=== PATIENT | female | born 1995 | race Caucasian/White ===

== ENCOUNTER 2021-04-05 06:01 | Inpatient (IN) | payer BC, SELFPAY ==
[2021-04-05] VITALS (82 sets, daily range): BP systolic 84–135; BP diastolic 61–86; PULSE 48–100; RESP 10–32; TEMP 36.2–37; O2SAT 88–100; BMI 42.9
[2021-04-05] MEDS: lactated ringers 1,000 ML 999 ML IV (06:01)
[2021-04-05] MEDS: ampicillin 2,000 MG in sodium chloride 0.9% (plus) 50 ML 100 MG IV (06:13)
[2021-04-05] MEDS: citric acid-sodium citrate 30 mL UDC PO (06:41)
[2021-04-05] MEDS: famotidine 20 mg/2 mL INJ IVP (06:45)
[2021-04-05] MEDS: metoclopramide 5 mg/mL SDV 2 mL 10 MG IVP (06:45)
--- NOTE | 2021-04-05 06:50 | P.ANESASSM_ITS ---
Pre-Anesthetic Assessment Pre-Anesthetic Assessment: Preop Diagnosis: IUP Proposed Procedure: C- Section Familial anesthetic complications: None Last intake: NPO > 8 hrs Exam: Pre-Anes Outpt Exam: alert, oriented x 3 and regular rate & rhythm Airway: Cervical ROM: WNL MP: 4 Dentition: Chipped and Other (missing) Pulmonary: Pulmonary: Asthma CV/HEM: Comments: platelets 50k per patient while at [facility] Metabolic: Metabolic: Morbid obesity Anesthetic Plan: ASA status: 3E Anesthesia: General Other: RSI Risk of > 500 ml blood loss (7ml/kg in children): Yes, adequate IV access and fluids planned Data Anesthesia CBC & Chem 7: 04/05/21 06:05 Cardiac Studies: No Data to Display
[2021-04-05 07:26] LABS: Basophils % 0.3 %; Eosinophils % 0.1 %; Hematocrit 31.6 % (37.0-47.0); Lymphocytes # 2.2 10^3/uL (0.8-4.8); Lymphocytes % 30.9 %; Mean Corpuscular HGB Conc 31.6 g/dL (30.0-36.0); Mean Corpuscular Hemoglobin 25.8 pg (28.0-34.0); Mean Corpuscular Volume 81.4 fL (81-99); Monocytes # 0.4 10^3/uL (0.2-0.9); Monocytes % 6.3 %; Neutrophils # 4.25 10^3/uL (1.8-7.7); Nucleated Red Blood Cells % 0.3 %; Platelet Count 37 10^3/cmm (130-400); Red Blood Count 3.88 10^6/uL (4.1-5.3); Red Cell Distribution Width 14.4 % (12.1-15.1)
[2021-04-05 07:32] LABS: Slide Review Slide Review Perform
--- NOTE | 2021-04-05 08:34 | PM.OBGYHP ---
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 The patient received her care with Dr. Meyers in [place]. They have been seen in [place] 2 days prior. At that time she refused a Covid swab and left AMA according to the hospital. The patient's has otherwise been within normal limits. She did state that at [place] they found that her platelet counts were 50,000. On arrival to hospital, she was found to have a moderate amount of vaginal bleeding. Once we had the patient on the monitor, she was found to have an infant with minimal variability and late decelerations. After we had enough of a strip to make it clear that it was a consistent pattern, a stat was initiated. Her Covid status was unknown, and she had spiked a fever at [place] so elected to have her in a negative pressure room of the OR. She has once again refused to have a Covid test. Per the patient she has no significant medical history. She has had no previous problems with bleeding. She does states that she has had lower platelets with previous pregnancies as well. She is unaware of anyone in her family having issues with bleeding. 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 Meyers. We are in the process of receiving the documents from [facility]. Physical Exam Const: COMMON NORMALS: patient oriented x3 and alert HENMT: COMMON NORMALS: moist oral mucous membranes HEAD & SCALP: normal to inspection Chest: COMMONS NORMALS: normal inspection of the chest Resp: COMMON NORMALS: clear to auscultation bilaterally AUSCULTATION: clear to auscultation bilaterally Cardio: COMMON NORMALS: regular rate and regular rhythm RATE: regular rate RHYTHM: regular rhythm GI: INSPECTION: Yes normal to inspection and Yes other (Gravid) : EXTERNAL FEMALE EXAM: Yes other (Moderate vaginal bleeding noted) Extremity: COMMON NORMALS: normal to inspection GENERAL: Yes edema (Trace) Neuro: COMMON NORMALS: patient oriented x3, moves all extremities and no sensory deficits noted SENSORIUM/ORIENTATION: Yes alert Psych: COMMON NORMALS: mental status grossly normal Skin: COMMON NORMALS: no rashes or lesions noted GENERAL SKIN EXAM: no rashes or lesions noted Data : 04/06/21 05:00 04/06/21 05:00 A&P Assessment and plan (1) 36 weeks gestation of : Status: Acute (2) Thrombocytopenia: Post surgery, she had a larger than normal amount of vaginal bleeding when the uterus was evacuated. She was placed on Hemabate. The patient was given extra Pitocin. We will start tranexamic acid. I have consulted Dr. Beltrán. We will get a CBC and a DIC panel stat. We will transfer her to ICU for further evaluation. We will carefully monitor her condition. As long as she maintains normal bleeding, and has no neurologic changes we will consider keeping her here at our hospital. If we have any concerns about her stability or if we are concerned she is shifting into TTP she will be transferred. Status: Acute (3) COVID-19 virus test result unknown: Covid test the patient if she will agree to it. Status: Acute (4) Vaginal bleeding during : Status: Acute (5) Non-reassuring heart rate with late deceleration: Status: Acute Attestations Medical Necessity Statement*: The patient will be in the hospital for 3 to 5 days while we evaluate her thrombocytopenia and ensure that she is hemodynamically stable post surgery Coding Level of Care Code Acute [employer] Director for g Fwd Exam Comprehensive Diagnoses 36 weeks gestation of Z3A.36 Thrombocytopenia D69.6 COVID-19 virus test result unknown Z20.822 Vaginal bleeding during O46.90 Non-reassuring heart rate with late deceleration O36.8390
--- NOTE | 2021-04-05 08:37 | P.PCN_ITS ---
PACU note PACU note: VSS, Good respiratory effort, report to BAT LATHE OPERATOR Post-Anesthesia Exam: awake
--- NOTE | 2021-04-05 08:37 | PM.PACU ---
PACU note PACU note: VSS, Good respiratory effort, report to FIRST BREAKER FEEDER Post-Anesthesia Exam: awake
--- NOTE | 2021-04-05 09:00 | PC.NURSE ---
Received pt Rec'd pt from OR with OB nurses at bedside. Pt was able to move from OR bed to ICU bed on her own with little assist. She has a ceserean incision to her lower abdomen covered with foam tape. Her mederos is in place and draining. The chucks under her do have blood on them. The total EBL combined on chucks is about 35ml. Pt is alert and oriented. Her fundus is firm after massage by OB nurse. Pt has 2 18 guage IVs to each arm. SCDs are in place. Pt is on room air. Her phone and glasses are on her bedside table.
[2021-04-05 09:32] LABS: Hematocrit 30.5 % (37.0-47.0); Hemoglobin 9.6 g/dL (11.5-15.3); Mean Corpuscular HGB Conc 31.5 g/dL (30.0-36.0); Mean Corpuscular Hemoglobin 26.2 pg (28.0-34.0); Mean Corpuscular Volume 83.3 fL (81-99); Platelet Count 43 10^3/cmm (130-400); Red Blood Count 3.66 10^6/uL (4.1-5.3); Red Cell Distribution Width 14.3 % (12.1-15.1); White Blood Count 7.1 10^3/uL (4.0-10.0)
[2021-04-05] MEDS: docusate sodium 100 mg Capsule PO ×2 (10:11→17:03)
[2021-04-05] MEDS: dextrose 5%-lactated ringers 1,000 ML 125 ML IV ×2 (10:11→17:06)
[2021-04-05 10:12] LABS: Partial Thromboplastin Time 38.7 SECONDS (23.9-36.7)
[2021-04-05 10:21] LABS: Absolute Neutrophil 5.6 10^3/cmm (1.4-6.5); Absolute Segmented Neutrophil 4.3 10/cmm (1.6-7.1); Band Neutrophils Absolute 1.3 10^3/cmm (0.0-1.2); Eosinophils 0 %; Lymphocytes 18 %; Lymphocytes Absolute 1.3 10^3/cmm (1.2-3.4); Monocytes Absolute 0.2 10^3/cmm (0.1-0.6); Platelet Estimate Decreased (Normal); Segmented Neutrophils 61 %; Total Cells Counted 100 (0-100)
[2021-04-05 10:22] LABS: Fibrinogen 111 mg/dL (174-498)
[2021-04-05 10:29] LABS: D Dimer >= 20.00 ug/mIFEU (0-0.59)
[2021-04-05] MEDS: HYDROcodone-acetaminophen 5-325 mg Tablet PO ×4 (10:31→22:10)
[2021-04-05 11:10] LABS: Lactate Dehydrogenase 877 U/L (135-214)
[2021-04-05 11:45] LABS: Anion Gap 12.6 (5-19); Blood Urea Nitrogen 10 mg/dL (6-20); Calcium 7.3 mg/dL (8.5-10.5); Carbon Dioxide 23 mmol/L (22-29); Chloride 107 mmol/L (98-107); Glomerular Filtration Rate 197.8 mL/min (90-130); Glucose 93 mg/dL (65-115); Osmolality Calculated 287 mOsm/kg (285-295); Potassium 3.6 mmol/L (3.5-5.1); Sodium 139 mmol/L (136-145)
[2021-04-05 14:42] LABS: Basophils % 0.1 %; Hematocrit 24.3 % (37.0-47.0); Hemoglobin 7.6 g/dL (11.5-15.3); Lymphocytes # 1.7 10^3/uL (0.8-4.8); Lymphocytes % 21.8 %; Mean Corpuscular HGB Conc 31.3 g/dL (30.0-36.0); Mean Corpuscular Volume 83.2 fL (81-99); Monocytes # 0.4 10^3/uL (0.2-0.9); Monocytes % 4.6 %; Neutrophils # 5.69 10^3/uL (1.8-7.7); Neutrophils % 72.5 %; Nucleated Red Blood Cells % 0 %; Platelet Count 30 10^3/cmm (130-400); Red Blood Count 2.92 10^6/uL (4.1-5.3); Red Cell Distribution Width 14.4 % (12.1-15.1); White Blood Count 7.9 10^3/uL (4.0-10.0)
[2021-04-05 14:54] LABS: Lactate Dehydrogenase 577 U/L (135-214)
[2021-04-05 15:14] LABS: Slide Review Slide Review Perform
[2021-04-05] MEDS: ferrous sulfate EC 325 mg Tablet PO (17:03)
--- NOTE | 2021-04-05 17:17 | P.CONIM_ITS ---
Providers/Reason For Consult Consulting Physician/Specialty*: Hematology Reason for Consult*: Thrombocytopenia Attending Physician: David Ho MD History of Present Illness History of Present Illness Neris Sanders is a 25 year old woman who was admitted for emergency due to distress. She is 6, para 6 with her 5 previous pregnancies having been delivered vaginally without complications. On her admission note it was reported that she has had low platelet count with prior pregnancies. She was having vaginal bleeding on arrival to the emergency room this morning she was noted to have moderately severe thrombocytopenia with platelet count 37,000. Hemoglobin was mildly decreased at 10.0 g with white blood cell count normal at 7000. Her repeat CBC postoperatively showed hemoglobin down slightly at 9.6 g with white blood cell count 7100 and platelet count 43,000. Her DIC profile showed PT slightly prolonged at 14.50 seconds with PTT 38.7 seconds, fibrinogen low at 111 mg/dL, fibrin degradation products elevated greater than 40 and D- dimer elevated at greater than 20.00. At that point I had requested additional studies to be added which apparently were done on the initial lab draw. Those included haptoglobin level which was low at 28.0 mg/dL and LDH which was significantly elevated at 877 U/L. I reviewed the blood smear from both of those studies and there were just very occasional schistocytes present. There were some large platelet forms present and there was some platelet clumping. She has now been admitted to ICU. Her repeat CBC from 1420 show significant decline in the hemoglobin to 7.6 g with white blood cell count 7900 and platelet count 30,000. The LDH level has come down to 577 U/L. Her chemistry profile earlier today showed normal renal function with BUN 10 and creatinine 0.4 mg/dL. She does feel somewhat weak generally, and she is having some chills. She reports having had a fever of 102 degrees on Monday, but none since then. One of her children had recently tested positive for Covid, but she just came out of quarantine today. Patient is having significant abdominal pain. She does not have headache, visual changes, or any focal neurologic symptoms. Review of Systems Const: Reports: fever(s) and fatigue; Denies: night sweats or other (no hot flashes) Eyes: Denies: change in vision ENMT: Denies: throat pain, odynophagia, hoarseness, oral sores, change in hearing or tinnitus Card: Denies: chest pain, palpitations, swelling of feet/ankles or lightheadedness Resp: Denies: dyspnea, productive cough, wheezing, pain on inspiration or hemoptysis GI: Reports: abdominal pain; Denies: nausea, vomiting, dysphagia, heartburn, diarrhea, constipation, hematochezia or melena : Denies: dysuria, urinary frequency, urinary urgency, urinary hesitancy, urinary incontinence or hematuria Musc: Denies: neck pain, back pain, joint pain or joint stiffness Neuro: Denies: headache(s), numbness in extremities, sensory changes or dizziness Psych: Denies: anxiety or depression Hector/Lymph: Denies: easy bruising Meds/Allergies Home Medications and Allergies Allergies Allergy/AdvReac Type Severity Reaction Status Date / Time No Known Allergies Allergy Verified 04/05/21 10:24 Current Medications Current Medications Generic Name Dose Route Start Last Admin Trade Name Freq PRN Reason Stop Dose Admin Hydrocodone Bitart/Acetaminophen 1 - 2 tab 04/05/21 09:42 04/05/21 13:56 Hydrocodone-Acetaminophen 5-325 Mg Tablet PO 2 tab Q4H PRN Administration MODERATE TO SEVERE PAIN Docusate Sodium 100 mg 04/05/21 09:42 04/05/21 17:03 Docusate Sodium 100 Mg Capsule PO 100 mg BID PALAK Administration Ferrous Sulfate 325 mg 04/05/21 18:00 04/05/21 17:03 Ferrous Sulfate Ec 325 Mg Tablet PO 325 mg BIDWM PALAK Administration Dextrose/Lactated Ringer's 1,000 mls @ 125 mls/hr 04/05/21 09:42 04/05/21 17:06 Dextrose 5%-Lactated Ringers IV 125 mls/hr .Q8H PALAK Administration PFSH Acute PFSH: Surgical History (Updated 04/05/21 @ 18:13 by Aguilar Beltrán MD) History of tonsillectomy and adenoidectomy Social History (Updated 04/05/21 @ 17:57 by Aguilar Beltrán MD) Smoking and tobacco status: former smoker Alcohol intake: never Marital status: Female Reproductive History: : 6 Vitals/I&O/Wt Last Vital Signs Temp 98.1 F 04/05/21 16:00 Pulse 80 04/05/21 16:00 Resp 14 04/05/21 16:00 BP 111/65 04/05/21 16:00 Pulse Ox 99 04/05/21 16:00 04/05/21 04/05/21 04/05/21 06:59 14:59 22:59 Intake Total 1999 864.583 / 2864.583 Output Total 1450 / 1450 Balance 550 / 550 864.583 / 1414.583 Weight last 48 hrs Weight 113.398 kg Physical Exam Const: OTHER: She is in some discomfort and she does have some chills. HENMT: MOUTH: Normal oral and palatal mucosa present THROAT: posterior oropharynx normal Eye: COMMON NORMALS: conjunctivae normal and no scleral icterus CONJUNCTIVA: Yes conjunctivae normal Lymph: LYMPHATIC: no lymphadenopathy noted (No cervical, clavicular, axillary, or inguinal lymphadenopathy) Resp: COMMON NORMALS: clear to auscultation bilaterally AUSCULTATION: clear to auscultation bilaterally Cardio: COMMON NORMALS: regular rate, regular rhythm, No gallops present (Cardio), No murmurs present (Cardio) and No rub (Cardio) RATE: regular rate RHYTHM: regular rhythm GI: COMMON NORMALS: negative for non-tender, negative for No hepatosplenomegaly present and negative for no masses PALPATION: No No hepatosplenomegaly present OTHER: Abdomen is mildly distended. She is significantly tender, particularly in the right upper quadrant area. Bowel sounds are present. : COMMON NORMALS: Yes no CVA tenderness BLADDER/KIDNEY EXAM: Yes no CVA tenderness Back/Pelvis: COMMON NORMALS: no CVA tenderness and no thoracic nor lumbar tenderness Extremity: NARRATIVE EXTREMITY EXAM: No edema. Pedal pulses are palpable bilaterally. Neuro: COMMON NORMALS: no focal motor deficits and no sensory deficits noted Skin: NARRATIVE SKIN EXAM: No evidence of skin eruption. No suspicious skin lesions noted. Urinary Catheter Management^: Dejesus Latex: Cath Placed During This Visit: yes Urinary Catheter Date of Insertion: 04/05/21 Urinary Catheter Time of Insertion: 06:30 A&P Assessment and plan (1) Thrombocytopenia: Status: Acute (2) Anemia due to blood loss, acute: Status: Acute Additional A&P Information This patient presents with moderately severe thrombocytopenia and anemia in association with . She has been delivered by section due to distress. Postoperatively she has had a drop in her hemoglobin from 10 to 7.6 g. At this point this is presumed to be due to blood loss. The clinical picture is complicated as she does have some evidence for DIC but her elevated LDH and low haptoglobin suggest that there is a component of microangiopathic hemolysis, presumably TTP. She had an isolated fever 2 days ago, she has had no neurologic or renal manifestations of TTP. As she currently has no active bleeding and her LDH level decreasing, I think it is acceptable to monitor her closely. If her hematologic parameters fail to improve or if there is any deterioration in her clinical status, she should be transferred to a facility where plasma exchange is available. 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
[2021-04-05 18:39] LABS: Amphetamines Screen Urine Negative (Negative); Barbiturates Screen Urine Negative (Negative); Benzodiazepines Screen Urine Negative (Negative); Cocaine Screen Urine Negative (Negative); Opiate Screen Urine Positive (Negative); PCP Screen Urine Negative (Negative); THC Screen Urine Negative (Negative)
--- NOTE | 2021-04-05 19:30 | PM.OP ---
Operative Report Date of procedure: April 05, 2021 Pre-op Diagnosis: 36-week EGA with vaginal bleeding and nonreassuring heart tones Post-op diagnosis: other (Uterine abruption.) Procedure Done: Lower transverse section Specimens removed/disposition: 1. Female with Apgars of 1, 3, 5 and weight of 2.66 kg 2. Placenta with a three-vessel cord delivered intact Surgeon: David Ho Anesthesia: General Estimated blood loss (mL): 600 Complications: None Condition: critical (Due to thrombocytopenia) Disposition: ICU Brief History: Refer to history and physical Procedure: The patient was brought back to the operating room stat where she was prepped and draped in usual sterile fashion. The patient was then placed under general anesthesia.. A lower transverse skin incision was then made with a #10 blade. I then dissected down to the underlying subcutaneous tissue until arriving at the prerectal fascia. The fascia was then nicked with the scalpel bilaterally. The fascial incisions were then carried laterally with Knott scissors. Attention was then turned to the superior aspect of the incision which was grasped with kochers and tented up away from the underlying rectus abdominis muscles. The muscles were then dissected away from the fascia manually, and later with Knott scissors. Attention was then turned to the inferior aspect of the incision, and the fascia was dissected away from the underlying muscle in similar fashion. The rectus abdominis muscles were then spread manually. The peritoneum was entered manually. Excellent visualization of the uterus was noted. A lower transverse uterine incision was then made with a #10 blade. Upon arriving at the intrauterine cavity, the uterine incision was then extended manually. Dark blood was noted in the intrauterine cavity indicating a probable placental abruption. The amniotic sac was then ruptured, and thick meconium was noted. The was noted to be in vertex position. The baby was delivered without difficulty. There was no nuchal cord. The cord was immediately cut and clamped. The baby was then handed to Dr. Mc. The placenta was removed intact. The uterus was externalized. The intrauterine cavity was cleansed of any remaining debris. The uterine incision was reapproximated in 2 layers. The first layer was performed with 0 Vicryl in a running locked stitch. The second layer was an imbricating stitch also using 0 Vicryl. I then used 3 [id number] stitches to maintain excellent hemostasis. The uterus was replaced into the abdomen. The peritoneum was then irrigated with warm saline. I reexamined the uterine incision and found it to be hemostatic. The rectus abdominis muscles were then reapproximated using 0 Vicryl in a running stitch. The fascia was then reapproximated using 0 Vicryl in running stitch. The subcutaneous tissue was then reapproximated using 0 Vicryl in a running stitch. The skin was reapproximated using Insorb tiff. Steri-Strips were placed. A sterile dressing was placed. All counts were correct x2. The uterus was then evacuated, and she had moderate to large amount of blood and clots noted. As result I chose to have more Pitocin placed in the bag. She was given a dose of Hemabate. She was given a dose of tranexamic acid. The mother was briefly placed in the PACU before being transferred to the ICU due to her thrombocytopenia Associated Problem List Diagnoses (1) Vaginal bleeding during : (2) Thrombocytopenia: (3) 36 weeks gestation of : (4) Non-reassuring heart rate with late deceleration:
[2021-04-05] MEDS: miSOPROStol 200 mcg Tablet 600 MCG PO (19:45)
[2021-04-05] MEDS: hyDROXYzine 25 mg Capsule 50 MG PO (20:42)
[2021-04-05 20:57] LABS: Basophils % 0.1 %; Hematocrit 23.4 % (37.0-47.0); Hemoglobin 7.2 g/dL (11.5-15.3); Lymphocytes % 27.9 %; Mean Corpuscular HGB Conc 30.8 g/dL (30.0-36.0); Mean Corpuscular Hemoglobin 25.8 pg (28.0-34.0); Mean Corpuscular Volume 83.9 fL (81-99); Monocytes # 0.4 10^3/uL (0.2-0.9); Monocytes % 5.4 %; Neutrophils # 4.75 10^3/uL (1.8-7.7); Neutrophils % 65.6 %; Nucleated Red Blood Cells % 0.3 %; Platelet Count 37 10^3/cmm (130-400); Red Blood Count 2.79 10^6/uL (4.1-5.3); Red Cell Distribution Width 14.5 % (12.1-15.1); White Blood Count 7.2 10^3/uL (4.0-10.0)
[2021-04-05 21:25] LABS: Slide Review Slide Review Perform
[2021-04-06] VITALS (28 sets, daily range): BP systolic 95–124; BP diastolic 49–86; PULSE 76–114; RESP 14–21; TEMP 36.8–37.4; O2SAT 91–100
--- NOTE | 2021-04-06 01:48 | PC.NURSE ---
This nurse entered room, patient was attempting to sit on the side of the bed. this RN explained the importance of strict bedrest and minimal strain due to complicated surgery. Patient stated she didn't know what she was doing. Patient was able to lay back in the bed. This RN cleaned the patient and repositioned the patient in bed. Patient stated she was comfortable and asked for pain medication. explained that it was not quite time but would bring it when due. Patient does not seem to be bleeding more than normal, and all vitals appear stable at this time. will continue to monitor
[2021-04-06] MEDS: dextrose 5%-lactated ringers 1,000 ML 125 ML IV ×2 (01:57→09:15)
[2021-04-06] MEDS: HYDROcodone-acetaminophen 5-325 mg Tablet PO ×2 (03:20→08:13)
[2021-04-06 05:44] LABS: Basophils % 0.2 %; Lymphocytes # 1.6 10^3/uL (0.8-4.8); Lymphocytes % 30.2 %; Mean Corpuscular HGB Conc 31.2 g/dL (30.0-36.0); Mean Corpuscular Hemoglobin 26.1 pg (28.0-34.0); Mean Corpuscular Volume 83.6 fL (81-99); Monocytes # 0.3 10^3/uL (0.2-0.9); Monocytes % 4.9 %; Neutrophils # 3.32 10^3/uL (1.8-7.7); Nucleated Red Blood Cells % 0 %; Red Blood Count 2.26 10^6/uL (4.1-5.3); Red Cell Distribution Width 14.6 % (12.1-15.1); White Blood Count 5.3 10^3/uL (4.0-10.0)
[2021-04-06 05:51] LABS: INR 1.11 (0.8-1.2); Partial Thromboplastin Time 34.4 SECONDS (23.9-36.7)
[2021-04-06 05:52] LABS: Fibrinogen 249 mg/dL (174-498)
[2021-04-06 06:01] LABS: D Dimer 3.96 ug/mIFEU (0-0.59)
[2021-04-06 06:15] LABS: Slide Review Slide Review Perform
[2021-04-06 06:16] LABS: Hematocrit 18.9 % (37.0-47.0); Hemoglobin 5.9 g/dL (11.5-15.3); Platelet Count 34 10^3/cmm (130-400)
[2021-04-06 07:54] LABS: Anion Gap 11.2 (5-19); Blood Urea Nitrogen 5 mg/dL (6-20); Carbon Dioxide 23 mmol/L (22-29); Chloride 107 mmol/L (98-107); Glomerular Filtration Rate 275.7 mL/min (90-130); Glucose 112 mg/dL (65-115); Lactate Dehydrogenase 481 U/L (135-214); Osmolality Calculated 284 mOsm/kg (285-295); Potassium 3.2 mmol/L (3.5-5.1); Sodium 138 mmol/L (136-145)
--- NOTE | 2021-04-06 07:57 | PM.OBGYPN ---
MEDICAL OFFICE SECRETARY Subjective Subjective: Interval history: The patient has done fairly well overnight. She does not like her blood pressure cuff on and often takes it off because she says it hurts too much. She has pulled off her SCDs as well and refuses to wear them. She has not passed gas. Her bleeding has diminished substantially. Neurologically the patient has no complaints. Labor: Amniotic Membrane Status: Intact Vitals/I&O/Wt Last Vital Signs Temp 98.6 F 04/06/21 04:00 Pulse 79 04/06/21 07:00 Resp 17 04/06/21 07:00 BP 111/66 04/06/21 06:00 Pulse Ox 95 04/06/21 07:00 04/05/21 04/06/21 04/06/21 22:59 06:59 14:59 Intake Total 1314.583 / 3314.583 1000 / 4314.583 Output Total 400 / 1850 450 / 2300 Balance 914.583 / 1464.583 550 / 2014.583 Weight last 48 hrs Weight 250 lb Physical Exam Narrative: EXAM NARRATIVE: She is in no acute distress Lungs are clear auscultation bilaterally Her heart has a regular rate and rhythm Her fundus is below the umbilicus and firm. She is very tender on examination of her uterus. Her dressing is clean, dry and intact Her extremities have trace edema Urinary Catheter Management^: Dejesus Latex: Cath Placed During This Visit: yes Reason for Continuing Indwelling Catheter: Accurate Measurement of Urinary Output in Critically Ill Patients Urinary Catheter Date of Insertion: 04/05/21 Urinary Catheter Time of Insertion: 06:30 Data : 04/06/21 05:00 04/06/21 05:00 A&P Assessment and plan (1) Thrombocytopenia: Status: Acute (2) Status post : Status: Acute (3) Postoperative anemia due to acute blood loss: The patient appears to be doing reasonably well. Her hemoglobin has dropped to 5.9, and we will transfuse 2 units. She does not communicate often, and sometimes it is hard to understand what she wants. We have explained the importance of keeping the blood pressure cuff and SCDs on, and she is just not willing to keep on the SCDs, and will intermittently allow us to put on the blood pressure cuff. In general, her DIC labs have improved. Dr. Beltrán has been very helpful in evaluating her risk for TTP, and for general guidance regarding her hematology. If the remainder of her labs come back improved this morning, we will consider transferring her from the ICU. Status: Acute (4) Hypokalemia: This is likely transient. It is not in a critical range yet, and we will recheck it again in the morning. Status: Acute Attestations Medical Necessity Statement*: I anticipate the patient will be in the hospital for several more days as result of her thrombocytopenia and her postoperative anemia. 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
[2021-04-06] MEDS: docusate sodium 100 mg Capsule PO (08:12)
[2021-04-06] MEDS: ferrous sulfate EC 325 mg Tablet PO (08:12)
[2021-04-06] MEDS: morphine 4 mg/mL SDV 1 mL IVP ×2 (08:13→09:15)
[2021-04-06] MEDS: naloxone 0.4 mg/ml SDV IVP (08:50)
[2021-04-06] MEDS: ondansetron 2 mg/ML SDV 2 mL 4 MG IVP (08:50)
--- NOTE | 2021-04-06 09:42 | PC.CHAP ---
Pastoral Care Encounter/Spiritual Assessment Type of Contact [] Declined auto bumper straightener visit [] Patient/Family/Request visit [] Outpatient visit [] Follow-up visit [] Physician referral [] Code/Alert [x] Routine visit [] Staff referral [] Actively dying [] Patient sleeping [] Family support [] [] Out of room [] Palliative care [] [] Receiving care in room [] Pre-surgical visit [] Trauma [] Long length of stay [x] ICU visit [] Other: Relational/Emotional Strength [] Patient feels connected with others/family/visitors/staff [] Distress [] Loneliness/isolation [] Abandonment Spirituality of Patient [] Person of [place] [] Attends Pentecostal of their [place] [] Believes in Prayer [] Reads Bible or Islam materials [] There are Spiritual issues to be addressed Paper Processing Machine Helper Interventions [x] Prayer [] Active listening [] Non-anxious presence [] Spiritual/emotional support [] Crisis/trauma care [] Spiritual counseling [] Bereavement support [] Provided bereavement packet [] Provided Bible/devotional materials [] Provided toy/stuffed animal, coloring book to patient or family member [] Provided Communion [] Anointing/[place] [] Salvation [x] Completed spiritual assessment [] Other: Impact on Illness or Injury [] Angry [] Fearful [] Anxious [] Often cries [] Exhaustion [] Unable to work [] Unable to attend mormon [] Unable to walk/stand [] Unable to read [] Unable to drive [] Unable to eat/drink [] Unable to sleep [] Unable to be with family [] Patient intubated [] Other: Summary Time spent with patient
[2021-04-06] MEDS: diphenhydrAMINE 25 mg Capsule PO (10:18)
[2021-04-06] MEDS: sodium chloride 0.9% 250 ML 10 ML IV ×2 (10:18→16:22)
--- NOTE | 2021-04-06 10:51 | PC.NURSE ---
Phys notified 0840 Pt was given pain meds per mar and PRN orders. While pt was alert but tired. During admin of morphine she began to not being able to answer basic questions as in where she was at. Pt's vital signs were stable. Dr Ho was notified immediately. 0845 Dr Ho present at bedside. Dr began going over nuero assessment and then ordered a dose of Narcan. This nurse pulled and admin the narcan. PT immediately began having pain but was released somewhat from the brain fog . reassessed pt for any substantial confusion. It was agreed that pt is incredibly exhausted and the pain meds caused the temporary confusion. Pt's vital signs remain stable with no changes. Will continue to monitor.
--- NOTE | 2021-04-06 13:58 | PC.NURSE ---
Transfer to OB Pt ordered to be transferred to OB. Report called to Dayanara MATTHEWS. Pt transferred to OB by bed with the help of RACHEL Quan. Pt was able to move from ICU bed onto the OB bed. Verbal report given to Dayanara MATTHEWS at bedside. Pt's first unit of blood finished transfusing when pt arrived to OB room. Blood switched over to saline. Pt is notifying family of transfer to OB. Pt in good condition.
--- NOTE | 2021-04-06 15:05 | PC.NURSE ---
Offered patient SCDs to prevent blood clots in her legs. Patient refused.
[2021-04-06 15:24] LABS: Coronavirus Test Green County Detected
--- NOTE | 2021-04-06 16:50 | PC.NURSE ---
Patient refused abdominal dressing to be removed.
--- NOTE | 2021-04-06 16:50 | PC.NURSE ---
Patient assisted to the bathroom. Patient tolerated ambulating well, denying any dizziness or weakness at this time. Patient reported ambulating as just being painful.
--- NOTE | 2021-04-07 06:57 | PM.OBGYDC ---
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 Date of Admission: 04/05/21 06:01 Date of Discharge: 04/07/21 Attending Provider at Admission: David Ho MD Attending Provider at Discharge: David Ho MD Diagnoses at Discharge Discharge Diagnosis (1) Thrombocytopenia: Status: Acute (2) Status post : Status: Acute (3) Postoperative anemia due to acute blood loss: Status: Acute (4) Non-reassuring heart rate with late deceleration: Status: Acute (5) 36 weeks gestation of : Status: Acute Reason for Visit Reason for Visit: VAGINAL BLEEDING/36 WEEKS Hospital Course Hospital Course The patient is a 36-week multigravida female who presented to the hospital via EMS. Apparently she had been seen in [facility] a few days prior, but left AMA to avoid getting a Covid swab. Dr. Meyers, her OB doctor, explained that she had strongly encouraged her to stay and was very concerned about potential future complications as result of her thrombocytopenia. A few hours prior to admission, she began having vaginal bleeding. She then contacted EMS and was brought to the OB floor via ambulance. Upon arrival, we were able to obtain heart tones and noted that she had persistent late decelerations with minimal variability. As result, a stat was ordered. The was unremarkable. The baby on the other hand did not respond well to resuscitation, was intubated, and was shipped to [place]. Due to the mother's thrombocytopenia, she was placed in the ICU postoperatively. Dr. Beltrán, hematology, was consulted. A full panel of labs were done to evaluate for TTP, and to assess her cardiovascular status. While some labs were out of range, in some cases as expected in a state, they gradually improved over 24 hours. However her hemoglobin did drop to 5.9 and I elected to transfuse her 2 units of blood. She tolerated the transfusion well. Towards the end of the transfusion of the second unit of blood, the patient became aware that her daughter's condition had deteriorated and she is being transferred to [place]. She stated she wanted to be discharged to be with her daughter. We strongly encouraged her not to. A couple of different nurses talk to her about the importance of staying for her own health and the potential risk of dying if she began to bleed heavily. I also spoke with her via the phone prior to her leaving AGAINST MEDICAL ADVICE. I tried to help her understand the value of staying in the hospital, and explicitly explained the risks of leaving including the risk of dying. After speaking with her for a minute it became clear that she was not going to change her mind. I did my best to talk to her about potential signs and symptoms that would indicate she would need to get care immediately. She left shortly thereafter. During her hospital stay, her vaginal bleeding was within normal limits. It decreased substantially the day after surgery. Her urine output was appropriate. She did have some mild tachycardia but otherwise had vitals that were within normal limits she did not pass any flatus but was hungry. She had very low tolerance for anything that made her uncomfortable. She refused SCDs. She pulled off her blood pressure cuff frequently. And, she struggled to keep from pulling the nurse's hands off her belly when they did fundal rubs. She was presumed to be Covid positive during her hospital stay and was kept in isolation. She finally had a swab performed which did demonstrate she was positive for COVID-19.. Information Peripartum Data: Infant Delivery Method: Physical Exam Narrative: EXAM NARRATIVE: I did not personally examined the patient just prior to discharge. The nurse did remove her dressing and stated that the incision looked good. She appeared to be hemodynamically stable. Urinary Catheter Management^: Dejesus Latex: Cath Placed During This Visit: yes, but has since been removed by the nurse Reason for Continuing Indwelling Catheter: Decision to DC Catheter Urinary Catheter Date of Insertion: 04/05/21 Urinary Catheter Time of Insertion: 06:30 Date Urinary Catheter Removed: 04/06/21 Time Urinary Catheter Discontinued: 16:43 Discharge Data Data Completed and Pending: Labs from last 24 hours 04/06/21 04/05/21 04/05/21 05:00 10:04 06:05 Haptoglobin 58.0 Sodium 138 Potassium 3.2 L Chloride 107 Carbon Dioxide 23 Anion Gap 11.2 BUN 5 L Creatinine 0.3 L GFR Calculation 275.7 H Glucose 112 Calculated Osmolal ity 284 L Calcium 7.0 L Lactate Dehydrogen ase 481 H Nasal/Oral COVID-1 9 PCR Detected H Blood Type A Positive Rho(D) Type Positive / 4+ Antibody Screen Negative Crossmatch See Detail Addt'l Data from Hospital Stay: On admission the patient's complete blood count demonstrated a white blood count of 7.1 with a hemoglobin of 10.0 and a platelet count of 37,000. Over the next 24 hours, her hemoglobin slowly dropped to 5.9 postoperatively. Her platelet count fluctuated, but remained fairly stable in the 30,000 range. The patient left the hospital prior to a post transfusion CBC. Her initial haptoglobin on April 05 was 28. On April 06 it was 58. On April 05 her PT was 14.5 with an INR 1.1 APTT of 38.7 fibrinogen of 111 and a fibrin degrad products of greater than 40 and a D-dimer of greater than 20. On April 06 her PT was 14.6 with an INR of 1.1 APTT of 34.4 and fibrinogen of 249 a fibrin degrad products of greater than 40, and a D-dimer of 3.96 On April 05 her LDH initially was 877, at then decreased to 577 later that day and then finally 41 the subsequent day. Her urine drug screen was negative except for opiates which would have been expected since the drug screen was performed after she was given medication by us. She finally did agree to Covid swab and was found to be positive. Vitals: Last Vital Signs Temp 98.7 F 04/06/21 16:53 Pulse 110 H 04/06/21 16:53 Resp 18 04/06/21 16:53 BP 118/82 04/06/21 16:53 Pulse Ox 97 04/06/21 16:53 Discharge Plan Discharge Patient Disposition: Left Against Medical Advice Condition: Stable Prescriptions: No Action No Known Home Medications RF: 0 Referrals: Emili Omalley NP [Nurse Practitioner] - (You will have a new patient appointment with SRINIVASAN Mock on April 13, 2021 at 9:00 am. If you have any questions or need to reschedule please call them at [phone].) Discharge Attestations CHANGE NUMBER OPERATOR Time Spent in Discharge Care*: less than 30 min Coding Level of Care Code Acute Community Service Technician for Chg Fwd Diagnoses Thrombocytopenia D69.6 Status post Z98.891 Postoperative anemia due to acute blood loss D62 Non-reassuring heart rate with late deceleration O36.8390 36 weeks gestation of Z3A.36
== END 2021-04-06 17:20 | disposition left against medical advice (07) | DRG 786 ==
LOC: OBGYN 07:30 → ICU 09:27 → OBGYN 04-06 13:47
PROVIDERS: Internal Medicine Medical Oncology; Admitting Provider Family Medicine; Visit Provider Family Medicine
PROC: 10D00Z1 Extraction of Products of Conception, Low, Open Approach (ICD-10-PCS; CPT 59514; principal; 2021-04-05 07:00)
DX: O98.52 Other viral diseases complicating childbirth (principal); U07.1 COVID-19; O99.12 Other diseases of the blood and blood-forming organs and certain disorders involving the immune mechanism complicating childbirth; D62 Acute posthemorrhagic anemia; D69.6 Thrombocytopenia, unspecified; O46.93 Antepartum hemorrhage, unspecified, third trimester; O76 Abnormality in fetal heart rate and rhythm complicating labor and delivery; O90.81 Anemia of the puerperium; O99.285 Endocrine, nutritional and metabolic diseases complicating the puerperium; E87.6 Hypokalemia; Z3A.36 36 weeks gestation of pregnancy; Z37.0 Single live birth; Z53.29 Procedure and treatment not carried out because of patient's decision for other reasons
CPT/HCPCS: 12345; 36415; 36430; 51702; 59025; 59409; 80048; 80306; 83010; 83615; 85007; 85025; 85027; 85362; 85378; 85384; 85610; 85730; 86850; 86900; 86920; 87635; 96374; 96375; 99211; J0290; J0330; J2270; J2274; J2310; J2370; J2405; J2704; J2765; J3010; J3490; J7050; P9016